=== PATIENT | female | born 1995 | race Caucasian/White ===

== ENCOUNTER 2019-11-12 11:46 | Emergency (ER) | payer OTHER ==
[~2019-11-12] VITALS: Ht 160 cm; Wt 81.2 kg
[2019-11-12] MEDS ORDERED: PRENATABS FA T1 EACH (11:55)
[2019-11-12] MEDS ORDERED: BACTRIM DS TAB1 EACH PO (13:12)
== END 2019-11-12 13:30 | disposition home or self-care (01) ==
LOC: ER 11:46
DX: N39.0 Urinary tract infection, site not specified (principal)

== ENCOUNTER 2020-01-02 16:30 | Emergency (ER) | payer OTHER ==
[~2020-01-02] VITALS: Ht 160 cm; Wt 84.4 kg
[~2020-01-02 16:30] MED LIST: BACTRIM DS TAB1 EACH PO; PRENATABS FA T1 EACH
== END 2020-01-02 18:47 | disposition home or self-care (01) ==
LOC: ER 16:30
DX: N39.0 Urinary tract infection, site not specified (principal)

== ENCOUNTER 2020-05-22 05:39 | Outpatient (CLI) | payer OTHER ==
[~2020-05-22] VITALS: Ht 160 cm; Wt 93.9 kg
== END 2020-05-22 08:00 | disposition home or self-care (01) ==
LOC: LDR 05:39 → OBS/DEL 05:39 → EDSTATUS 08:28 → OBS/DEL 08:30
PROVIDERS: ATTEND Obstetrics & Gynecology
DX: O47.1 False labor at or after 37 completed weeks of gestation (principal)

== ENCOUNTER 2020-05-23 00:45 | Inpatient (IN) | payer OTHER ==
[~2020-05-23] VITALS: Ht 160 cm; Wt 93.9 kg
== END 2020-05-25 12:56 | disposition home or self-care (01) | DRG 807 ==
LOC: LDR 00:45 → OB/GYN 00:45
PROVIDERS: ADMIT Obstetrics & Gynecology; ATTEND Obstetrics & Gynecology
PROC: 10E0XZZ Delivery of Products of Conception, External Approach (ICD-10-PCS; principal; 2020-05-23)
PROC: 0KQM0ZZ Repair Perineum Muscle, Open Approach (ICD-10-PCS; 2020-05-23)
PROC: 4A0HXFZ Measurement of Products of Conception, Cardiac Rhythm, External Approach (ICD-10-PCS; 2020-05-23)
DX: O70.1 Second degree perineal laceration during delivery (principal); Z37.0 Single live birth; Z3A.39 39 weeks gestation of pregnancy

== ENCOUNTER 2023-07-09 10:45 | Outpatient (CLI) | payer OTHER | END 2023-07-09 12:22 | disposition home or self-care (01) | LOC: PRENATAL 10:45 | PROVIDERS: ATTEND Obstetrics & Gynecology Maternal & Fetal Medicine | DX: O36.80X0 Pregnancy with inconclusive fetal viability, not applicable or unspecified (principal); O26.849 Uterine size-date discrepancy, unspecified trimester; Z3A.15 15 weeks gestation of pregnancy ==

== ENCOUNTER 2023-07-16 09:51 | Outpatient (CLI) | payer OTHER | END 2023-07-16 12:30 | disposition home or self-care (01) | LOC: PRENATAL 09:51 | PROVIDERS: ATTEND Obstetrics & Gynecology Maternal & Fetal Medicine | DX: O26.849 Uterine size-date discrepancy, unspecified trimester (principal); O28.5 Abnormal chromosomal and genetic finding on antenatal screening of mother; Z3A.16 16 weeks gestation of pregnancy ==

== ENCOUNTER 2023-07-29 06:34 | Inpatient (IN) | payer OTHER ==
[~2023-07-29] VITALS: Ht 160 cm; Wt 75.3 kg
== END 2023-07-30 09:14 | disposition home or self-care (01) | DRG 807 ==
LOC: LDR 06:34 → OB/GYN 20:30
PROVIDERS: ADMIT Obstetrics & Gynecology; ATTEND Obstetrics & Gynecology
PROC: 10E0XZZ Delivery of Products of Conception, External Approach (ICD-10-PCS; principal; 2023-07-29)
PROC: 3E0DXGC Introduction of Other Therapeutic Substance into Mouth and Pharynx, External Approach (ICD-10-PCS; 2023-07-29)
PROC: 3E0P7VZ Introduction of Hormone into Female Reproductive, Via Natural or Artificial Opening (ICD-10-PCS; 2023-07-29)
PROC: 4A1HXCZ Monitoring of Products of Conception, Cardiac Rate, External Approach (ICD-10-PCS; 2023-07-29)
DX: O35.13X0 Maternal care for (suspected) chromosomal abnormality in fetus, Trisomy 21, not applicable or unspecified (principal); Z37.1 Single stillbirth; Z20.822 Contact with and (suspected) exposure to COVID-19; Z3A.18 18 weeks gestation of pregnancy

== ENCOUNTER 2025-10-25 18:58 | Emergency (ER) | payer OTHER ==
[~2025-10-25] VITALS: Ht 157.5 cm; Wt 88.9 kg
[2025-10-25 20:03] LABS: BASO % 0.7 % (0.1-1.2); EOS # 0.53 (0.04-0.54); EOS % 5.0 % (0.7-7.0); LYMPH # 3.63 (1.18-3.74); LYMPH % 34.1 % (19.3-53.1); MEAN PLATELET VOLUME 9.50 fl (9.4-12.4); MONO # 0.83 (0.24-0.82); MONO % 7.8 % (4.7-12.5); NEUT # 5.55 (1.56-6.13); NEUT % 52.1 % (34.0-71.1); RED CELL DISTRIBUTION WIDTH 12.9 % (11.6-14.4)
[2025-10-25 20:33] LABS: ALT/SGPT 46.0 U/L (12-78); AST/SGOT 19.0 U/L (15-37); BILIRUBIN TOTAL 0.16 mg/dL (0.3-1.2); BUN CREA RATIO 11.0 (7.0-25.0); CREATININE SERUM 0.75 mg/dL (0.55-1.02); GFR 91.36; GLOBULINA 4.2 G/DL (2.4-3.5); GLUCOSE FASTING 96.0 mg/dL (65-100); OSMOLALITY SERUM 279.0 MOSM/KG (275-295)
[2025-10-25 21:05] LABS: URINE APPEARANCE Clear; URINE BILIRRUBIN Negative (NEGATIVE); URINE BLOOD Negative; URINE COLOR Yellow; URINE GLUCOSE Negative (NEGATIVE); URINE KETONE Negative (NEGATIVE); URINE LEUKOCYTE Trace; URINE NITRATE Negative; URINE PROTEIN Negative (NEGATIVE); URINE UROBILINOGEN 0.2 E.U./dl
[2025-10-25 21:09] LABS: URINE EPITHELIAL CELLS 18.9 uL (0.0-38.8); URINE RBC 2.0 uL (0.0-20.8); URINE WBC 6.3 uL (0.0-23.2)
[2025-10-25 21:49] LABS: URINE CAST 0.00 uL (0.0-1.40)
== END 2025-10-25 23:21 | disposition home or self-care (01) ==
LOC: ER 18:58
PROVIDERS: Preventive Medicine Public Health & General Preventive Medicine
DX: O20.8 Other hemorrhage in early pregnancy (principal); Z3A.01 Less than 8 weeks gestation of pregnancy

== ENCOUNTER 2025-11-09 08:57 | Emergency (ER) | payer OTHER ==
[~2025-11-09] VITALS: Ht 157.5 cm; Wt 89.8 kg
[2025-11-09 12:10] LABS: BASO % 0.4 % (0.1-1.2); EOS # 0.15 (0.04-0.54); EOS % 1.3 % (0.7-7.0); LYMPH # 1.95 (1.18-3.74); LYMPH % 17.2 % (19.3-53.1); MEAN PLATELET VOLUME 9.50 fl (9.4-12.4); MONO # 0.59 (0.24-0.82); MONO % 5.2 % (4.7-12.5); NEUT # 8.56 (1.56-6.13); NEUT % 75.5 % (34.0-71.1); RED CELL DISTRIBUTION WIDTH 13.1 % (11.6-14.4)
[2025-11-09 12:30] LABS: URINE APPEARANCE Clear; URINE BILIRRUBIN Negative (NEGATIVE); URINE BLOOD Negative; URINE COLOR Yellow; URINE GLUCOSE Negative (NEGATIVE); URINE KETONE Negative (NEGATIVE); URINE LEUKOCYTE Moderate; URINE NITRATE Negative; URINE PROTEIN Negative (NEGATIVE); URINE UROBILINOGEN 0.2 E.U./dl
[2025-11-09 12:31] LABS: URINE EPITHELIAL CELLS 33.1 uL (0.0-38.8); URINE RBC 4.2 uL (0.0-20.8); URINE WBC 19.0 uL (0.0-23.2)
[2025-11-09 12:36] LABS: URINE CAST 0.14 uL (0.0-1.40)
[2025-11-09 12:52] LABS: ALT/SGPT 46.0 U/L (12-78); AST/SGOT 19.0 U/L (15-37); BILIRUBIN TOTAL 0.22 mg/dL (0.3-1.2); BUN CREA RATIO 13.0 (7.0-25.0); CREATININE SERUM 0.52 mg/dL (0.55-1.02); GFR 139.41; GLOBULINA 3.8 G/DL (2.4-3.5); GLUCOSE FASTING 95.0 mg/dL (65-100); OSMOLALITY SERUM 277.0 MOSM/KG (275-295)
[2025-11-09] MEDS ORDERED: PEPCID AC20 MG PO (17:54)
[2025-11-09] MEDS ORDERED: AMOX1TAB5 PO (17:54)
== END 2025-11-09 18:40 | disposition home or self-care (01) ==
LOC: ER 08:57
PROVIDERS: Preventive Medicine Public Health & General Preventive Medicine
DX: O26.891 Other specified pregnancy related conditions, first trimester (principal); Z3A.09 9 weeks gestation of pregnancy; S70.211A Abrasion, right hip, initial encounter; S80.211A Abrasion, right knee, initial encounter; V49.88XA Car occupant (driver) (passenger) injured in other specified transport accidents, initial encounter; Y93.89 Activity, other specified; Y92.89 Other specified places as the place of occurrence of the external cause; Y99.8 Other external cause status